=== PATIENT | female | born 1990 | race African-American/Black ===

== ENCOUNTER 2020-11-23 09:31 | Outpatient (CLI) | payer OTHER, SELFPAY ==
[2020-11-23 10:55] LABS: HIV 1/2 Ab P24 Ag Result Negative (Negative)
[2020-11-23 11:21] LABS: Hepatitis B Surface Antigen Negative (Negative)
[2020-11-23 11:27] LABS: HAV RESULT Negative (Negative); Hepatitis B Core IgM Result Negative (Negative)
[2020-11-23 13:06] LABS: Hepatitis C Virus Antibody Negative (Negative)
[2020-11-24 06:46] LABS: Rapid Plasma Reagin Non-Reactive (NonReactive)
== END 2020-11-23 09:32 | disposition home or self-care (01) ==
LOC: ANHLAB 09:36
PROVIDERS: Visit Provider Obstetrics & Gynecology
DX: Z11.3 Encounter for screening for infections with a predominantly sexual mode of transmission (principal)
CPT/HCPCS: 36415; 80074; 86592; 86695; 86696; 86703; G0432